=== PATIENT | male | born 1985 | race African-American/Black ===

== ENCOUNTER 2016-12-29 18:58 | Emergency (ER) | payer OTHER ==
[~2016-12-29] VITALS: Ht 185.4 cm; Wt 77.1 kg
[~2016-12-29 18:58] MED LIST: AUGMENTIN 875 M1 TAB PO; BLM PO; HYDROCODONE/ACE1 TA1 PO
[2016-12-29 19:02] VITALS: BP 124/79
--- NOTE | 2016-12-29 21:05 | ED EAR COMPLAINT ---
History of Present Illness General Chief Complaint: Ear Complaints Stated Complaint: R EAR PAIN-CANT HEAR Source: patient, old records Exam Limitations: no limitations Vital Signs & Intake/Output Vital Signs & Intake/Output Vital Signs Date Time Temp Pulse Resp B/P B/P Pulse O2 O2 Flow FiO2 Mean Ox Delivery Rate 12/29 1901 98.0 70 18 124/79 100 Room Air Allergies Coded Allergies: NO KNOWN ALLERGIES (12/28/11) Reconcile Medications Acetic Acid 2 % SOLUTION 3 GTT OTIC TID CERUMEN Carbamide Peroxide (Debrox) 6.5 % DROPS 2 GTT OTIC TID CERUMEN Triage Note: PT TO ED FOR DIFFICULTY HEARING OUT OF R EAR X 1 MONTH. Triage Nurses Notes Reviewed? yes Onset: Gradual Duration: week(s): (1 MONTH) Timing: recent history Injury Environment: home Severity: mild Severity Numbers: 4 No Modifying Factors: none Associated Symptoms: DENIES HPI: 31-year-old male presents complete 1 month history of decreased hearing in his right ear. He denies any known injury trauma. He denies any ear pain discharge or bleeding from his ear. No congestion or rhinorrhea fever chills sore throat. No history of similar symptoms in the past. No modifying factors she has not sought care until tonight. Patient is noted to have his ear earphones in both of his ears talking on the phone laughing conversing appears in no apparent distress (SHERYL ARANDA) Past History Travel History Traveled to [place] past 21 day No Medical History Any Pertinent Medical History? none Neurological: NONE EENT: NONE Cardiovascular: NONE Respiratory: NONE Gastrointestinal: NONE Hepatic: NONE Renal: NONE Musculoskeletal: NONE Psychiatric: NONE Endocrine: NONE Blood Disorders: NONE Cancer(s): NONE Surgical History Surgical History: non-contributory Psychosocial History What is your primary language Chinese Tobacco Use: Never used ETOH Use: occasional use Illicit Drug Use: marijuana Family History Hx Contributory? No (SHERYL ARANDA) Review of Systems Review of Systems Constitutional: Reports: see HPI. All Other Systems: Reviewed and Negative Comments Review of systems: See HPI, All other systems negative. Constitutional, no chills no fever, no malaise HEENT: No visual changes no sore throat no congestion, Cardiovascular: No chest pain , no palpitation Skin: no rashes, no change in skin Respiratory: No dyspnea no cough no sputum GI: No nausea no vomiting, no diarrhea, : No dysuria Muscle skeletal: No joint pain, no joint swelling, no back pain, no neck pain, Neurologic: no headache Psych: No stress Heme/endocrine: No bruising Immunology: No lymphadenopathy (SHERYL ARANDA) Physical Exam Physical Exam General Appearance: well developed/nourished, alert, awake Ears: Right: canal normal. Comments: Well-developed well-nourished patient in no apparent distress. Head/Face: Atraumatic, no maxillary/frontal sinus tenderness, no facial swelling Eyes: PERRL, EOMI, no conjunctival injection Ear:R EAC HAS CERUMEN IN THE External auditory canal THE TM IS VISIBLE, NO PERFORATION, L EAC AND Tympanic membranes clear, no erythema, no FB. Nose: atraumatic.Normal inspection: No bleeding, no septal hematoma Throat: Moist mucous membranes.Pharynx normal. No pharyngeal erythema/exudate seen. No stridor/drooling or assymetry. No swelling or edema. Neck: Supple, no lymphadenopathy, FROM Back: FROM Cardiovascular: Regular rate and rhythms no murmurs Respiratory: No respiratory distress. Patient speaking in full complete sentences. Breath sounds clear to auscultation bilaterally: NO W/R/R Extremities: full range of motion Neuro: awake, alert, and oriented to person, place and time. There were no obvious focal neurologic abnormalities. Skin: Warm & dry;No appreciable rash on exposed skin Psych: Mood affect normal, normal memory normal judgment. (SHERYL ARANDA) Progress Differential Diagnoses I considered the following diagnoses in my evaluation of the patient: otitis, cerumen impaction, perforatin, mastoiditis Plan of Care: Patient present no apparent distress, he again he had his earphones in talking on the phone discussed with complaint of care follow up with ENT prescription for Debrox eardrops provided as well as acetic acid drops answered all the questions they feel comfortable plan cleared for discharge Initial ED EKG: none (SHERYL ARANDA) Departure Departure Time of Disposition: 2109 Disposition: HOME OR SELF CARE Condition: Stable Clinical Impression Primary Impression: Cerumen impaction Referrals: PATIENT HAS NO PRIMARY CARE DR (PCP/Family) VICTORIA CAVAZOS MD Additional Instructions: Follow-up with ear nose and throat physician Dr. cavazos. Debrox and acetic acid drops as discussed use a washcloth with soapy water to clean your ears do not use Q-tips. Departure Forms: Customer Survey General Discharge Information Prescriptions: Current Visit Scripts Acetic Acid 3 GTT OTIC TID #1 BOT Carbamide Peroxide (Debrox) 2 GTT OTIC TID #1 BOT (SHERYL ARANDA) PA/[employer] Co-Sign Statement Statement: ED Attending supervision documentation- [] I saw and evaluated the patient. I have also reviewed all the pertinent lab results and diagnostic results. I agree with the findings and the plan of care as documented in the PA's/[employer]'s documentation. [X] I have reviewed the ED Record and agree with the PA's/[employer]'s documentation. [] Additions or exceptions (if any) to the PAs/[employer]'s note and plan are summarized below: [] (CARMEL IRAHETA,JUAN RAMON Grace)
[2016-12-29] MEDS ORDERED: DEBROX15 ML OTIC (21:12)
[2016-12-29] MEDS ORDERED: ACETIC ACID15 ML OTIC (21:12)
== END 2016-12-29 21:29 ==
LOC: ERH 18:58
DX: H61.21 Impacted cerumen, right ear (principal)

== ENCOUNTER 2017-09-22 12:35 | Emergency (ER) | payer SELFPAY ==
[~2017-09-22] VITALS: Ht 193 cm; Wt 90.7 kg
[~2017-09-22 12:35] MED LIST changes: +ACETIC ACID15 ML OTIC; +DEBROX15 ML OTIC
[2017-09-22 13:11] VITALS: BP 103/79
[2017-09-22] MEDS ORDERED: NASONEX17 GM NASB (13:12)
--- NOTE | 2017-09-22 13:12 | ED EAR COMPLAINT ---
History of Present Illness General Chief Complaint: Ear Complaints Stated Complaint: R EAR BLOCKED Source: patient, old records Exam Limitations: no limitations Vital Signs & Intake/Output Vital Signs & Intake/Output Vital Signs Date Time Temp Pulse Resp B/P B/P Pulse O2 O2 Flow FiO2 Mean Ox Delivery Rate 09/22 1311 98.0 87 18 103/79 99 Room Air Allergies Coded Allergies: NO KNOWN ALLERGIES (12/28/11) Reconcile Medications Acetic Acid 2 % SOLUTION 3 GTT OTIC TID CERUMEN Carbamide Peroxide (Debrox) 6.5 % DROPS 2 GTT OTIC TID CERUMEN Mometasone Furoate (Nasonex) 50 MCG SPRAY.PUMP 2 SPRAY NASB DAILY sinus Triage Nurses Notes Reviewed? yes Onset: Abrupt Duration: day(s): (2), constant Timing: recent history Injury Environment: home Severity: mild Severity Numbers: 1 No Modifying Factors: none Associated Symptoms: denies HPI: 32 yo male presents to the ER c/o r ear pain and decreased hearing out of ear x 2 days. he has history of sim sx in the past and needed his ears flushed. no left ear pain, no rhinorrhea congestino, cough fever chills. pt attempting flushign with peroxide with no relief. no modifying factors or associated sx otherwise. no trauma (Pascual Newman) Past History Travel History Traveled to [place] past 21 day No Medical History Any Pertinent Medical History? none Neurological: NONE EENT: NONE Cardiovascular: NONE Respiratory: NONE Gastrointestinal: NONE Hepatic: NONE Renal: NONE Musculoskeletal: NONE Psychiatric: NONE Endocrine: NONE Blood Disorders: NONE Cancer(s): NONE Surgical History Surgical History: non-contributory Psychosocial History What is your primary language Malaysian Family History Hx Contributory? No (Pascual Newman) Review of Systems Review of Systems Constitutional: Reports: see HPI. Comments Review of systems: See HPI, All other systems negative. Constitutional, no chills no fever, no malaise no weight loss HEENT: no sore throat no congestion, no ear pain Cardiovascular: No chest pain , no palpitation Skin: no rashes, no change in skin Respiratory: No dyspnea no cough no sputum no hemoptysis GI: No nausea no vomiting, no diarrhea, no bloating/constipation : No dysuria No hematuria, no frequency Muscle skeletal: No joint pain, no back pain, no neck pain, Neurologic: , no headache Psych: No stress no depression,. Heme/endocrine: No bruising no bleeding Immunology: No lymphadenopathy (Pascual Newman) Physical Exam Physical Exam General Appearance: well developed/nourished Ears: Left: Tympanic normal. Comments: Well-developed well-nourished patient in no apparent distress. Head/Face: Atraumatic, no maxillary/frontal sinus tenderness, no facial swelling Eyes: PERRL, EOMI, no conjunctival injection Ear:fluid level behind right TM, no perforation, External auditory canal and left Tympanic membranes clear, no erythema, no FB. Nose: atraumatic.Normal inspection: No bleeding, no septal hematoma Throat: Moist mucous membranes.Pharynx normal. No pharyngeal erythema/exudate seen. No stridor/drooling or assymetry. No swelling or edema. Neck: Supple, no lymphadenopathy, FROM Back: FROM Cardiovascular: Regular rate and rhythms no murmur Respiratory: No respiratory distress. Patient speaking in full complete sentences. Breath sounds clear to auscultation bilaterally: NO W/R/R Extremities: full range of motion Neuro: awake, alert, and oriented to person, place and time. There were no obvious focal neurologic abnormalities. Skin: Warm & dry;No appreciable rash on exposed skin Psych: Mood affect normal, normal memory normal judgment. (Pascual Newman) Progress Differential Diagnoses I considered the following diagnoses in my evaluation of the patient: [otitis media, externa, cerumen impaciton Plan of Care: d/w pt plan of care, return precautions discussed at length. cleared for dc Initial ED EKG: none (Pascual Newman) Departure Departure Time of Disposition: 1310 Disposition: HOME OR SELF CARE Condition: Stable Clinical Impression Primary Impression: Middle ear effusion Referrals: Patient Has No Primary Care Dr (PCP/Family) Additional Instructions: Follow-up with your primary care physician this week if symptoms persist continue using peroxide or warm soaks to help with ear wax. Nasonex as directed . Departure Forms: Customer Survey General Discharge Information Prescriptions: Current Visit Scripts Mometasone Furoate (Nasonex) 2 SPRAY NASB DAILY #1 INHAL (Pascual Newman) PA/[employer] Co-Sign Statement Statement: ED Attending supervision documentation- [] I saw and evaluated the patient. I have also reviewed all the pertinent lab results and diagnostic results. I agree with the findings and the plan of care as documented in the PA's/[employer]'s documentation. [X] I have reviewed the ED Record and agree with the PA's/[employer] documentation. [] Additions or exceptions (if any) to the PAs/[employer]'s note and plan are summarized below: [] (Domi IRAHETA,Mejia Grace)
== END 2017-09-22 13:12 ==
LOC: ERH 12:35
DX: H92.01 Otalgia, right ear (principal)